=== PATIENT | female | born 1980 | race Caucasian/White ===

== ENCOUNTER 2019-11-05 02:14 | Emergency (ER) | payer BC ==
[2019-11-05] MEDS ORDERED: ONDANSETRON 4 MG/2 ML VIAL ONE (03:10)
[2019-11-05] MEDS ORDERED: NA CHLORIDE 0.9% 1,000 ML ONE (03:10)
[2019-11-05 03:45] LABS: Absolute Lymphocytes (CBC) 2.7 K/uL (0.7-4.9); Basophils % 0.4 % (0-1.3); Hematocrit 40.1 % (36.0-45.0); Lymphocytes % 35.9 % (15.3-44.8); MPV 9.5 fL (7.6-11.3); RBC Red Blood Cell Count 4.56 M/uL (3.86-4.86)
[2019-11-05 03:50] LABS: Protime INR 0.99
[2019-11-05 03:55] LABS: Barbiturates NEGATIVE (NEGATIVE); Benzodiazepines NEGATIVE (NEGATIVE); Cocaine NEGATIVE (NEGATIVE); METHAMPHETAM NEGATIVE (NEGATIVE); Methadone NEGATIVE (NEGATIVE); Opiates NEGATIVE (NEGATIVE); Phencyclidine NEGATIVE (NEGATIVE); THC Cannibis NEGATIVE (NEGATIVE)
[2019-11-05 04:03] LABS: ALT/SGPT 46 U/L (12-78); AST/SGOT 27 U/L (15-37); Albumin 3.7 g/dL (3.4-5.0); Alkaline Phosphatase 70 U/L (45-117); BUN Blood Urea Nitrogen 10 mg/dL (7-18); Bicarbonate 25 mmol/L (21-32); Bilirubin Direct 0.1 mg/dL (0-0.2); Bilirubin Total 0.5 mg/dL (0.2-1.0); Glucose Level 89 mg/dL (74-106); Magnesium 2.2 mg/dL (1.8-2.4); NT PRO-BNP 21 pg/mL (<125); Potassium 3.7 mmol/L (3.5-5.1); Sodium Level 140 mmol/L (136-145); Troponin (Emerg Dept Use Only) < 0.02 ng/mL (0.0-0.045)
--- NOTE | 2019-11-05 04:15 | EDPHYS ---
Physician Documentation [facility] Name: Dior Avila Age: 39 yrs Sex: Female : 1980 Arrival Date: 11/05/2019 Time: 02:18 Bed 15 Private MD: ALEXANDRE Physician Gregorio Galeana HPI: 11/05 03:04 This 39 yrs old Female presents to ER via Ambulatory with complaints of tolu Dizziness, Doesn't Feel Right. 03:04 The patient presents with dizziness, feeling faint, generalized weakness. Onset: The tolu symptoms/episode began/occurred just prior to arrival. Context: occurred at home, occurred while the patient was. Modifying factors: The symptoms are alleviated by nothing, the symptoms are aggravated by nothing. Associated signs and symptoms: The patient has no apparent associated signs or symptoms. Severity of symptoms: At their worst the symptoms were mild in the emergency department the symptoms are unchanged. Patient's baseline: Neuro:. The patient has not experienced similar symptoms in the past. 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 [Active]; bb - PMHx: 02:46 None; bb - PSHx: 02:46 Tubal ligation; bilateral heel spurs; bb - Immunization history:: Adult Immunizations up to date. - Coronavirus screen:: The patient has NOT traveled to [place], [place], or [place] in the past 14 days. Proceed with normal triage process as indicated. - Social history:: Smoking status: Patient denies any tobacco usage or history of. - Family history:: not pertinent. - Ebola Screening: : No symptoms or risks identified at this time. ROS: 03:04 Constitutional: Negative for fever, chills, and weight loss, Eyes: Negative for injury, tolu pain, redness, and discharge, ENT: Negative for injury, pain, and discharge, Neck: Negative for injury, pain, and swelling, Cardiovascular: Negative for chest pain, palpitations, and edema, Respiratory: Negative for shortness of breath, cough, wheezing, and pleuritic chest pain, Abdomen/GI: Negative for abdominal pain, nausea, vomiting, diarrhea, and constipation, Back: Negative for injury and pain, : Negative for injury, bleeding, discharge, and swelling, MS/Extremity: Negative for injury and deformity, Skin: Negative for injury, rash, and discoloration, Psych: Negative for depression, anxiety, suicide ideation, homicidal ideation, and hallucinations, Allergy/Immunology: Negative for hives, rash, and allergies, Endocrine: Negative for neck swelling, polydipsia, polyuria, polyphagia, and marked weight changes, Hematologic/Lymphatic: Negative for swollen nodes, abnormal bleeding, and unusual bruising. 03:04 Neuro: Positive for altered mental status, weakness. Exam: 03:04 Constitutional: This is a well developed, well nourished patient who is awake, alert, tolu and in no acute distress. Head/Face: Normocephalic, atraumatic. Eyes: Pupils equal round and reactive to light, extra-ocular motions intact. Lids and lashes normal. Conjunctiva and sclera are non-icteric and not injected. Cornea within normal limits. Periorbital areas with no swelling, redness, or edema. ENT: Nares patent. No nasal discharge, no septal abnormalities noted. Tympanic membranes are normal and external auditory canals are clear. Oropharynx with no redness, swelling, or masses, exudates, or evidence of obstruction, uvula midline. Mucous membranes moist. Neck: Trachea midline, no thyromegaly or masses palpated, and no cervical lymphadenopathy. Supple, full range of motion without nuchal rigidity, or vertebral point tenderness. No Meningismus. Chest/axilla: Normal chest wall appearance and motion. Nontender with no deformity. No lesions are appreciated. Cardiovascular: Regular rate and rhythm with a normal S1 and S2. No gallops, murmurs, or rubs. Normal PMI, no JVD. No pulse deficits. Respiratory: Lungs have equal breath sounds bilaterally, clear to auscultation and percussion. No rales, rhonchi or wheezes noted. No increased work of breathing, no retractions or nasal flaring. Abdomen/GI: Soft, non-tender, with normal bowel sounds. No distension or tympany. No guarding or rebound. No evidence of tenderness throughout. Back: No spinal tenderness. No costovertebral tenderness. Full range of motion. Female : Normal external genitalia. Skin: Warm, dry with normal turgor. Normal color with no rashes, no lesions, and no evidence of cellulitis. MS/ Extremity: Pulses equal, no cyanosis. Neurovascular intact. Full, normal range of motion. Neuro: Awake and alert, GCS 15, oriented to person, place, time, and situation. Cranial nerves II-XII grossly intact. Motor strength 5/5 in all extremities. Sensory grossly intact. Cerebellar exam normal. Normal gait. Psych: Awake, alert, with orientation to person, place and time. Behavior, mood, and affect are within normal limits. 03:04 Musculoskeletal/extremity: DVT Exam: No signs of deep vein thrombosis. no pain, no swelling, no tenderness, negative Homans' sign noted on exam, no appreciated bluish discoloration, no erythema, no increased warmth. Vital Signs: 02:46 BP 117 / 68; Pulse 99; Resp 16 S; Temp 98.1(O); Pulse Ox 100% on R/A; Weight 78.02 kg bb (R); Height 5 ft. 4 in. (162.56 cm) (R); Pain 0/10; 03:30 BP 121 / 66; Pulse 97; Resp 16; Pulse Ox 98% ; rv 04:30 BP 118 / 66; Pulse 97; Resp 15; Pulse Ox 100% on R/A; rv 02:46 Body Mass Index 29.52 (78.02 kg, 162.56 cm) bb MDM: 02:48 Patient medically screened. [facility] 03:06 Data reviewed: vital signs, nurses notes, lab test result(s), CBC, drug level(s), tolu electrolytes, Flu: hepatic panel, urinalysis, urine drug screen, EKG, radiologic studies. 11/05 03:03 Order name: Basic Metabolic Panel [facility] 11/05 03:03 Order name: CBC with Diff tolu 11/05 03:03 Order name: LFT's 11/05 03:03 Order name: Magnesium 11/05 03:03 Order name: NT PRO-BNP 11/05 03:03 Order name: PT-INR [facility] 11/05 03:03 Order name: Troponin (emerg Dept Use Only) [facility] 11/05 03:03 Order name: Lipase [facility] 11/05 03:03 Order name: UDS [facility] 11/05 03:08 Order name: Basic Metabolic Panel; Complete Time: 04:14 EDMS 02/08 03:08 Order name: CBC with Automated Diff; Complete Time: 04:14 EDMS 11/05 03:08 Order name: Liver (Hepatic) Function; Complete Time: 04:14 EDMS 08 03:08 Order name: Magnesium; Complete Time: 04:14 EDMS 0208 03:08 Order name: NT PRO-BNP; Complete Time: 04:14 EDMS 0208 03:03 Order name: XRAY Chest (1 view) [facility] 11/05 03:03 Order name: EKG; Complete Time: 03:09 [facility] 11/05 03:03 Order name: Cardiac monitoring; Complete Time: 06:21 [facility] 11/05 03:03 Order name: EKG - Nurse/Tech; Complete Time: 06:21 [facility] 11/05 03:03 Order name: IV Saline Lock; Complete Time: 06:22 [facility] 11/05 03:03 Order name: Labs collected and sent; Complete Time: 06:22 [facility] 11/05 03:03 Order name: O2 Per Protocol; Complete Time: 06:22 [facility] 11/05 03:03 Order name: O2 Sat Monitoring; Complete Time: 06:22 [facility] 11/05 03:03 Order name: CT Head Brain wo Cont [facility] 11/05 03:03 Order name: Urine Dipstick-Ancillary (obtain specimen) [facility] 11/05 03:08 Order name: Protime (+INR); Complete Time: 04:14 EDMS 08 03:51 Order name: Lipase; Complete Time: 04:14 EDMS 08 03:55 Order name: Urine Drug Screen; Complete Time: 04:14 EDMS 11/05 04:03 Order name: Troponin (Emerg Dept Use Only); Complete Time: 04:14 EDMS Administered Medications: 03:30 Drug: NS 0.9% 1000 ml Route: IV; Rate: 1 bolus; Site: left antecubital; rv 04:30 Follow up: IV Status: Completed infusion; IV Intake: 1000ml rv 03:30 Drug: Zofran 4 mg Route: IVP; Site: left antecubital; rv 04:30 Follow up: Response: No adverse reaction rv Disposition: 11/05/19 04:14 Discharged to Home. Impression: Dizziness and giddiness, Weakness. - Condition is Stable. - Discharge Instructions: Dizziness, Near-Syncope, Weakness, Fatigue, Near-Syncope, [id number]-yd-Imro, Dizziness, [id number]. - Prescriptions for Meclizine 25 mg Oral Tablet - take 1 tablet by ORAL route every 8 hours As needed; 30 tablet. Zofran 4 mg Oral Tablet - take 1 tablet by ORAL route every 12 hours As needed; 14 tablet. - Medication Reconciliation Form, Thank You Letter, Antibiotic Education, Prescription Opioid Use, Work release form form. - Follow up: Private Physician; When: 2 - 3 days; Reason: Recheck today's complaints, Continuance of care, Re-evaluation by your physician. - Problem is new. - Symptoms have improved. Signatures: Dispatcher [employer] EDMS Gregorio Galeana MD MD cha Ballard, Brenda, RN RN bb Andreas Xie RN RN rv Corrections: (The following items were deleted from the chart) 05:23 04:14 11/05/2019 04:14 Discharged to Home. Impression: Dizziness and giddiness; bb Weakness. Condition is Stable. Discharge Instructions: Dizziness, Near-Syncope, Weakness, Fatigue, Near-Syncope, Winp-sy-Xrap, Dizziness, [id number]. Prescriptions for Meclizine 25 mg Oral Tablet - take 1 tablet by ORAL route every 8 hours As needed; 30 tablet, Zofran 4 mg Oral Tablet - take 1 tablet by ORAL route every 12 hours As needed; 14 tablet. and Forms are Medication Reconciliation Form, Thank You Letter, Antibiotic Education, Prescription Opioid Use. Follow up: Private Physician; When: 2 - 3 days; Reason: Recheck today's complaints, Continuance of care, Re-evaluation by your physician. Problem is new. Symptoms have improved. tolu
--- NOTE | 2019-11-05 04:15 | ER ---
Nurse's Notes [facility] Name: Dior Avila Age: 39 yrs Sex: Female : 1980 Arrival Date: 11/05/2019 Time: 02:18 Bed 15 Private MD: Diagnosis: Dizziness and giddiness;Weakness Presentation: 11/05 02:43 Presenting complaint: Patient states: yesterday afternoon at work she started not bb feeling right with dizziness, a cold sensation she went home and tried to sleep but woke up at 0100 feeling this "cold sensation, floaty feeling" and it scared her. Transition of care: patient was not received from another setting of care. Onset of symptoms was November 04, 2019. Risk Assessment: Do you want to hurt yourself or someone else? Patient reports no desire to harm self or others. Initial Sepsis Screen: Does the patient meet any 2 criteria? No. Patient's initial sepsis screen is negative. Does the patient have a suspected source of infection? No. Patient's initial sepsis screen is negative. Care prior to arrival: None. 02:43 Method Of Arrival: Ambulatory bb 02:43 Acuity: JOSE 3 bb Triage Assessment: 03:30 General: Appears in no apparent distress. Behavior is calm, cooperative. 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 [Active]; bb - PMHx: 02:46 None; bb - PSHx: 02:46 Tubal ligation; bilateral heel spurs; bb - Immunization history:: Adult Immunizations up to date. - Coronavirus screen:: The patient has NOT traveled to [place], [place], or [place] in the past 14 days. Proceed with normal triage process as indicated. - Social history:: Smoking status: Patient denies any tobacco usage or history of. - Family history:: not pertinent. - Ebola Screening: : No symptoms or risks identified at this time. Screenin:30 Abuse screen: Denies threats or abuse. Denies injuries from another. Nutritional rv screening: No deficits noted. Tuberculosis screening: No symptoms or risk factors identified. Fall Risk None identified. Assessment: 03:30 General: Appears in no apparent distress. Behavior is calm, cooperative. rv 03:30 Pain: Denies pain. Neuro: Level of Consciousness is awake, alert, obeys commands, rv Oriented to person, place, time, situation. Cardiovascular: Patient's skin is warm and dry. Respiratory: Airway is patent. Vital Signs: 02:46 BP 117 / 68; Pulse 99; Resp 16 S; Temp 98.1(O); Pulse Ox 100% on R/A; Weight 78.02 kg bb (R); Height 5 ft. 4 in. (162.56 cm) (R); Pain 0/10; 03:30 BP 121 / 66; Pulse 97; Resp 16; Pulse Ox 98% ; rv 04:30 BP 118 / 66; Pulse 97; Resp 15; Pulse Ox 100% on R/A; rv 02:46 Body Mass Index 29.52 (78.02 kg, 162.56 cm) bb ED Course: 02:18 Patient arrived in ED. [id number] 02:44 Triage completed. bb 02:46 Arm band placed on Patient placed in an exam room, on a stretcher, on pulse oximetry. bb Family accompanied patient. 02:48 Gregorio Galeana MD is Attending Physician. tolu 02:55 Andreas Xie RN is Primary Nurse. rv 03:30 Patient has correct armband on for positive identification. Pulse ox on. NIBP on. rv 03:30 No provider procedures requiring assistance completed. Inserted saline lock: 18 gauge rv in left antecubital area, using aseptic technique. 04:30 IV discontinued, intact, bleeding controlled, No redness/swelling at site. Pressure rv dressing applied. 05:12 XRAY Chest (1 view) In Process Unspecified. EDMS 05:12 CT Head Brain wo Cont In Process Unspecified. EDMS Administered Medications: 03:30 Drug: NS 0.9% 1000 ml Route: IV; Rate: 1 bolus; Site: left antecubital; rv 04:30 Follow up: IV Status: Completed infusion; IV Intake: 1000ml rv 03:30 Drug: Zofran 4 mg Route: IVP; Site: left antecubital; rv 04:30 Follow up: Response: No adverse reaction rv Intake: 04:30 IV: 1000ml; Total: 1000ml. rv Outcome: 04:14 Discharge ordered by . tolu 05:00 Discharged to home ambulatory, with family. rv 05:00 Condition: good 05:00 Discharge instructions given to patient, Instructed on discharge instructions, follow rv up and referral plans. medication usage, Demonstrated understanding of instructions, follow-up care, medications, Prescriptions given X 2. 05:23 Patient left the ED. bb Signatures: Dispatcher [employer] EDGregorio Maldonado MD MD cha Ballard, Brenda RN RN Andreas Dale RN RN Glenis [id number] Corrections: (The following items were deleted from the chart) 02:50 02:46 BP 117 / 68; Pulse 99bpm; Resp 16bpm; Spontaneous; Pulse Ox 100% RA; 78.02 kg bb Reported; Height 5 ft. 4 in. Reported; BMI: 29.5; Pain 0/10; bb
[2019-11-05 05:30] VITALS: BP 117/68; TEMP 98.1; O2SAT 100
--- NOTE | 2019-11-05 09:09 | RAD REPORT ---
EXAM DESCRIPTION: Justine Single View11/05/2019 3:40 am CLINICAL HISTORY: cough COMPARISON: 2007 FINDINGS: The lungs appear clear of acute infiltrate. The heart is normal size IMPRESSION: No acute abnormalities displayed
--- NOTE | 2019-11-05 11:29 | RAD REPORT ---
EXAM DESCRIPTION: CT - Head Brain Wo Cont - 11/05/2019 6:14 am CLINICAL HISTORY: DIZZINESS COMPARISON: None available TECHNIQUE: Axial CT of the head obtained from the skull apex to the skull base without contrast. FINDINGS: No acute intracranial hemorrhage identified. No mass, mass effect, shift of the midline, a bnormal extra-axial fluid collection or CT evidence of acute ischemic change identified. The ventricu lar system is unremarkable. No acute abnormalities of the supratentorial white matter, basal gangli a, cerebellum, or brainstem. The visualized paranasal sinuses and the mastoids are clear. Possible sebaceous cyst in the right sca lp subcutaneous soft tissues. No skull fracture identified. Visualized orbits and globes are unre markable. IMPRESSION: 1. No acute intracranial abnormality identified. This exam was performed according to our departmental dose-optimization program, which includes autom ated exposure control, adjustment of the mA and/or kV according to patient size and/or use of iterati ve reconstruction technique. Electronically signed by: Kemal Brunson 11/05/2019 5:29 AM TELEPHONE LINES REPAIRER Due to temporary technical issues with the PACS/Fluency reporting system, reports are being signed by the in house radiologist as a courtesy to ensure prompt reporting. The interpreting radiologist is f ully responsible for the content of the report.
== END 2019-11-05 05:23 | disposition home or self-care (01) ==
LOC: ER 02:14
DX: R53.1 Weakness (principal)
CPT/HCPCS: 96361; 85025; 80048; 36415; 83735; 85610; 80076; 80307 ×8; 84484; 83690; 83880; 70450; 71045; 96374; 99284; J7030; J2405

== ENCOUNTER 2021-05-15 16:34 | Emergency (ER) | payer BC ==
[2021-05-15] MEDS ORDERED: ACETAMINOPHEN 500 MG TAB ONE (17:24)
--- NOTE | 2021-05-15 18:08 | RAD REPORT ---
EXAM DESCRIPTION: RAD - Chest Single View - 05/15/2021 5:56 pm CLINICAL HISTORY: COUGH COMPARISON: Portable October 2019 TECHNIQUE: AP portable chest image was obtained 05/15/2021 5:56 pm . FINDINGS: Lung volumes are low. No dense mass or consolidations seen. Slight increase in lung markin gs noted superior right perihilar region. No other focal lung parenchymal process confirmed. Trachea is midline. Heart and vasculature are normal. No measurable pleural effusion and no pneumotho rax. No acute bony abnormality seen. No acute aortic findings suspected. IMPRESSION: Limited low lung volume exam showing right upper perihilar opacification suspicious for a mild or early pneumonia.
--- NOTE | 2021-05-15 19:54 | EDPHYS ---
Physician Documentation [facility] Name: Dior Avila Age: 40 yrs Sex: Female : 1980 Arrival Date: 05/15/2021 Time: 16:34 Bed 23 Private MD: ED Physician Maxi Florentino HPI: 05/16 00:45 This 40 yrs old Female presents to ER via Ambulatory with complaints of Covid kb + Fatigue. 00:45 The patient or guardian reports cough, flu symptoms, myalgias. Onset: The kb symptoms/episode began/occurred 3 day(s) ago. Severity of symptoms: At their worst the symptoms were moderate, in the emergency department the symptoms are unchanged. Modifying factors: The symptoms are alleviated by nothing, the symptoms are aggravated by nothing. Associated signs and symptoms: The patient has no apparent associated signs or symptoms. The patient has not experienced similar symptoms in the past. The patient has been recently seen by a physician:. Patient reports she was tested tested positive for Covid 3 days ago. Came in today for severe body aches and fatigue. States all she has been wanting to do is sleep.. Historical: - Allergies: 05/15 16:58 No Known Allergies; ss - Home Meds: 16:58 None [Active]; ss - PMHx: 16:58 None; ss - PSHx: 16:58 Tubal ligation; ss - Immunization history:: Client reports having NOT received the Covid vaccine. - Social history:: Smoking status: Patient denies any tobacco usage or history of. ROS: 05/16 00:45 ENT: Negative for injury, pain, and discharge. kb Constitutional: Positive for body aches, fatigue, malaise. Respiratory: Positive for cough, Negative for dyspnea on exertion, hemoptysis, orthopnea, pleurisy, shortness of breath, sputum production, wheezing. All other systems are negative. Exam: 00:45 Constitutional: This is a well developed, well nourished patient who is awake, alert, kb and in no acute distress. Head/Face: Normocephalic, atraumatic. ENT: Moist Mucous membranes Cardiovascular: Regular rate and rhythm with a normal S1 and S2. No gallops, murmurs, or rubs. No pulse deficits. Respiratory: Respirations even and unlabored. No increased work of breathing, no retractions or nasal flaring. Abdomen/GI: Soft, non-tender. No distention Skin: Warm, dry with normal turgor. Normal color. MS/ Extremity: Pulses equal, no cyanosis. Neurovascular intact. Full, normal range of motion. Neuro: Awake and alert, GCS 15, oriented to person, place, time, and situation. Moves all extremities. Normal gait. Psych: Awake, alert, with orientation to person, place and time. Behavior, mood, and affect are within normal limits. Vital Signs: 05/15 16:58 BP 114 / 57; Pulse 104; Resp 17; Temp 100.7(O); Pulse Ox 98% on R/A; Weight 72.57 kg; ss Height 5 ft. 4 in. (162.56 cm); Pain 6/10; 19:43 BP 100 / 63; Pulse 78; Resp 20; Temp 98.8; Pulse Ox 100% on R/A; lh3 16:58 Body Mass Index 27.46 (72.57 kg, 162.56 cm) ss MDM: 19:30 Patient medically screened. kb 05/16 00:47 Data reviewed: vital signs, nurses notes. Data interpreted: Pulse oximetry: on room air kb is 100 %. Interpretation: normal. Counseling: I had a detailed discussion with the patient and/or guardian regarding: the historical points, exam findings, and any diagnostic results supporting the discharge/admit diagnosis, the need for outpatient follow up, a family practitioner, to return to the emergency department if symptoms worsen or persist or if there are any questions or concerns that arise at home. 05/15 17:00 Order name: XRAY Chest (1 view); Complete Time: 18:37 ss Administered Medications: 05/15 17:02 Drug: Tylenol 1000 mg Route: PO; ss 19:44 Follow up: Response: No adverse reaction lh3 20:21 Drug: Zithromax (azithromycin) 500 mg Route: PO; lh3 20:21 Follow up: Response: No adverse reaction lh3 Disposition: 05/16 13:25 Co-signature as Attending Physician, Maxi Florentino MD I agree with the assessment and rn plan of care. Attestation: The patient's history, exam findings, diagnostics, and a summary of any interventions or procedures was reviewed in detail with Val OH. Disposition Summary: 05/15/21 19:54 Discharge Ordered Location: Home kb Condition: Stable kb Diagnosis - Coronavirus infection, unspecified kb - Pneumonia, unspecified organism kb Followup: kb - With: Private Physician - When: 2 - 3 days - Reason: Recheck today's complaints, Continuance of care, Re-evaluation by your physician Followup: kb - With: Emergency Department - When: As needed - Reason: Worsening of condition Discharge Instructions: - Discharge Summary Sheet kb - Viral Respiratory Infection, Tymy-En-Vruz kb - COVID-19 kb Forms: - Medication Reconciliation Form kb - Thank You Letter kb - Antibiotic Education kb - Prescription Opioid Use kb Prescriptions: - Zithromax 500 mg Oral Tablet - take 1 tablet by ORAL route once daily for 5 days; 5 tablet; Refills: 0, kb Product Selection Permitted Signatures: Dispatcher [employer] EDMI Val Alanis FNP-C FNPMaxi Pacheco MD MD rn Smirch, Shelby, RN RN ss Hardee, Latisha, RN RN 3 Corrections: (The following items were deleted from the chart) 05/15 16:59 16:58 PSHx: None; ss ss
--- NOTE | 2021-05-15 19:54 | ER ---
Nurse's Notes [facility] Name: Dior Avila Age: 40 yrs Sex: Female : 1980 Arrival Date: 05/15/2021 Time: 16:34 Bed 23 Private MD: Diagnosis: Coronavirus infection, unspecified;Pneumonia, unspecified organism Presentation: 05/15 16:56 Chief complaint: Patient states: COVID + on 3 days ago. Pt c/o extreme fatigue and body ss pain. Coronavirus screen: Client presents with at least one sign or symptom that may indicate coronavirus-19. Ebola Screen: Patient denies exposure to infectious person. Patient denies travel to an Ebola-affected area in the 21 days before illness onset. Initial Sepsis Screen: Does the patient meet any 2 criteria? No. Patient's initial sepsis screen is negative. Does the patient have a suspected source of infection? No. Patient's initial sepsis screen is negative. Risk Assessment: Do you want to hurt yourself or someone else? Patient reports no desire to harm self or others. Onset of symptoms was April 2021. 16:56 Method Of Arrival: Ambulatory ss 16:56 Acuity: JOSE 3 ss Triage Assessment: 19:42 General: Appears in no apparent distress. Behavior is calm, cooperative, appropriate lh3 for age. Pain: Denies pain. Respiratory: Reports shortness of breath cough that is productive, pain with cough. Historical: - Allergies: 16:58 No Known Allergies; ss - Home Meds: 16:58 None [Active]; ss - PMHx: 16:58 None; ss - PSHx: 16:58 Tubal ligation; ss - Immunization history:: Client reports having NOT received the Covid vaccine. - Social history:: Smoking status: Patient denies any tobacco usage or history of. Screenin:43 Abuse screen: Denies threats or abuse. Nutritional screening: No deficits noted. lh3 Tuberculosis screening: No symptoms or risk factors identified. Fall Risk None identified. Assessment: 19:43 Reassessment: Patient appears in no apparent distress at this time. General: Appears in lh3 no apparent distress. Behavior is calm, cooperative, appropriate for age. Vital Signs: 16:58 BP 114 / 57; Pulse 104; Resp 17; Temp 100.7(O); Pulse Ox 98% on R/A; Weight 72.57 kg; ss Height 5 ft. 4 in. (162.56 cm); Pain 6/10; 19:43 BP 100 / 63; Pulse 78; Resp 20; Temp 98.8; Pulse Ox 100% on R/A; lh3 16:58 Body Mass Index 27.46 (72.57 kg, 162.56 cm) ED Course: 16:34 Patient arrived in ED. ds1 16:58 Triage completed. ss 16:58 Arm band placed on left wrist. ss 17:56 XRAY Chest (1 view) In Process Unspecified. EDMS 18:36 Val Alanis FNP-C is PHCP. kb 18:36 Maxi Florentino MD is Attending Physician. kb 19:42 Gladys Lakhani, RN is Primary Nurse. lh3 19:43 Patient has correct armband on for positive identification. Bed in low position. Call lh3 light in reach. Side rails up X2. 19:43 No provider procedures requiring assistance completed. Patient did not have IV access lh3 during this emergency room visit. Administered Medications: 17:02 Drug: Tylenol 1000 mg Route: PO; ss 19:44 Follow up: Response: No adverse reaction lh3 20:21 Drug: Zithromax (azithromycin) 500 mg Route: PO; lh3 20:21 Follow up: Response: No adverse reaction lh3 Outcome: 19:54 Discharge ordered by MD. kb 20:21 Discharged to home ambulatory. lh3 20:21 Condition: stable 20:21 Discharge instructions given to patient, Instructed on discharge instructions, follow up and referral plans. medication usage, Demonstrated understanding of instructions, follow-up care, medications, Prescriptions given X 1. 20:22 Patient left the ED. lh3 Signatures: Dispatcher [employer] EDVT Val Alanis FNP-C FNP-Ckb [place], Demi ds1 Alexandria Kamara RN RN Gladys Lakhani, RN RN lh3 Corrections: (The following items were deleted from the chart) 16:59 16:58 PSHx: None; [facility]
[2021-05-15 20:29] VITALS: BP 100/63; TEMP 98.8; O2SAT 100
[2021-05-15] MEDS ORDERED: AZITHROMYCIN 250 MG TAB ONE (20:50)
== END 2021-05-15 20:22 | disposition home or self-care (01) ==
LOC: ER 16:34
DX: U07.1 COVID-19 (principal); J18.9 Pneumonia, unspecified organism
CPT/HCPCS: 71045; 99283

== ENCOUNTER 2022-04-21 07:53 | Day surgery (SDC) | payer BC ==
--- NOTE | 2022-04-18 15:30 | RAD REPORT ---
EXAM DESCRIPTION: RAD - Chest Pa And Lat (2 Views) - 04/18/2022 3:15 pm CLINICAL HISTORY: Pre op pending scalp mass removal Chest pain. COMPARISON: Chest Pa And Lat (2 Views) dated 09/06/2021; Chest Single View dated 05/15/2021; Chest Si ngle View dated 11/05/2019; CHEST PA AND LAT 2 VIEW dated 06/21/2008 FINDINGS: The lungs are clear. The heart is normal in size. No displaced fractures. IMPRESSION: No acute or concerning finding suspected.
[2022-04-18 15:35] LABS: Hematocrit 38.4 % (36.0-45.0); Lymphocytes % 49.4 % (15.3-44.8); MCV 86.6 fL (80-100); MPV 8.2 fL (7.6-11.3); RBC Red Blood Cell Count 4.43 M/uL (3.86-4.86)
[2022-04-18 15:49] LABS: Potassium 4.4 mmol/L (3.5-5.1)
[2022-04-21] MEDS ORDERED: CEFAZOLIN SODIUM 1 GM/VIAL ONE (08:26)
[2022-04-21] MEDS ORDERED: Ringers Lactate 1,000 ML IV ONE (08:26)
[2022-04-21] MEDS ORDERED: BUPIVACAINE 0.5% PF 10 ML VIAL ONE (08:39)
[2022-04-21] MEDS ORDERED: FENTANYL CITR 100 MCG/2 ML ONE (08:43)
[2022-04-21] MEDS ORDERED: MIDAZOLAM HCL 2 MG/2 ML INJ ONE (08:44)
[2022-04-21] MEDS ORDERED: ONDANSETRON 4 MG/2 ML VIAL ONE ×2 (08:44→12:46)
[2022-04-21] MEDS ORDERED: LIDOCAINE 2% MPF 5 ML VIAL ONE (08:44)
[2022-04-21] MEDS ORDERED: propofoL 200 MG/20 ML VIAL IV ONE (08:44)
[2022-04-21] MEDS ORDERED: CELECOXIB 100 MG CAPSULE ONE (08:57)
[2022-04-21] MEDS ORDERED: SCOPOLAMINE HYDROBROMIDE PATCH TD ONE (08:57)
[2022-04-21] MEDS ORDERED: ACETAMINOPHEN 500 MG TAB ONE (08:58)
--- NOTE | 2022-04-21 09:32 | EKG ---
Test Date: 2022-04-18 Test Time: 14:58:50 Director Of Teaching And Learning: ALONZO MEASUREMENT RESULTS: Intervals: Rate: 74 ND: 156 QRSD: 78 QT: 390 QTc: 432 [place]: P: 57 ND: 156 QRS: 51 T: 38 INTERPRETIVE STATEMENTS: Normal sinus rhythm Normal ECG No previous ECG available for comparison Electronically Signed On 04-21-22 09:25:20 CDT by Laci Whitten
--- NOTE | 2022-04-21 10:08 | P.BOP ---
Preoperative diagnosis: tender scalp mass Postoperative diagnosis: same Primary procedure: Excisional biopsy of tender scalp mass 3x3cm Assistive Technology Trainer: Leila Puga ( Issac) Estimated blood loss: <10cc Specimen: mass, Findings: mass Anesthesia: General Complications: None Transferred to: Recovery Room Condition: Good
[2022-04-21 10:10] VITALS: O2SAT 100
[2022-04-21] MEDS: HYDROMORPHONE HCL 1 MG/ML INJ ONE ×4 (10:18→10:38)
--- NOTE | 2022-04-21 10:46 | OP ---
Date of Procedure: 04/21/2022 Surgeon: Jonn Velez MD Preoperative Diagnosis: Tender scalp mass. Postoperative Diagnosis: Tender scalp mass. Procedure: Excisional biopsy of tender scalp mass, 3 x 3 cm Anesthesia: General plus local. Complications: None. Specimen: Mass. Indication: This is the case of a 41-year-old patient with a scalp mass. It looked like a 3 x 3 cm. There is an indentation in the middle, so it is hard to say if this is the mass or there were 2 mas ses fused together. Regardless of that, this have to be removed. It is already causing alopecia on the top of that skin. The benefits, alternatives, and risks of the scalp mass removal fully explaine d, which include, but not limited to infection, bleeding, damage to adjacent structures, anesthesia c omplication, recurrence of alopecia, [place] and even . She also understands this may not relieve an y symptoms. She might need more than one surgical intervention. She also has a chance of recurrence . She signed a consent. The area of concern was marked by me and the patient in the holding room. Procedure In Detail: The patient was brought to the operating room, placed in supine position. Anes thesia was done without complication. The scalp area was prepped and draped in the usual sterile fas hion. Local anesthesia was applied followed by sharp incision of the skin. We have to leave some of the skin behind, we could not remove all the skins from the area. Otherwise, we will not be able to close that even closure may be under some tension. So carefully with a sharp knife, we proceeded to carefully remove the scalp skin away from the mass itself and then from the galea underneath. The m ass is multilobulated. I still believe there is probably 1 mass with an indentation in the middle __ we have to remove the mass completely there. We then obtained hemostasis in order for us to approximate this incision after irrigation and after hemostasis. We proceeded to close this with a 2-0 nylon multiple times in a suture mattress fashion. Skin looks viable at the end of the case. Th e irrigation and hemostasis were obtained before this, also local anesthetic before this. Then after that, dressings were applied. The patient tolerated the procedure well. The patient was sent to [facility] in stable condition. RORY/MODL Voice ID: [id number] Report ID: [id number]
--- NOTE | 2022-04-21 10:46 | DS ---
Diagnosis: Scalp mass. Procedure: Excisional biopsy of scalp mass. Disposition: Home. Activity: As tolerated. No heavy lifting. Plan: Follow up in my office in 1 week. Call for appointment at [phone]. Keep area dry for 48 natalie rs, then may remove outer dressings and clean the area hopefully with gentle shampoo. We suggest als o baby shampoo. Then, reapply triple antibiotics over the suture lines and follow up in my office in 1 week. RORY/CHINA Voice ID: [id number] Report ID: [id number]
[2022-04-21] MEDS ORDERED: DIPHENHYDRAMINE 25 MG TAB/CAP ONE (12:46)
[2022-04-21] MEDS ORDERED: ONDANSETRON 4 MG/2 ML VIAL IV ONE (12:50)
[2022-04-21 14:23] VITALS: BP 105/60
[2022-04-21 14:25] VITALS: TEMP 97.4
== END 2022-04-21 13:10 | disposition home or self-care (01) ==
LOC: OR 07:53
PROVIDERS: ATTEND Surgery
PROC: 0HB0XZZ Excision of Scalp Skin, External Approach (ICD-10-PCS; principal; 2022-04-21 09:45)
DX: L72.0 Epidermal cyst (principal); Z20.822 Contact with and (suspected) exposure to COVID-19
CPT/HCPCS: 93005; 85025; 80048; 36415; 88304; 71046; 11423; J2704; J2250; J3010; J1170 ×2; J7120; J2405 ×3; J0690; 88305

== ENCOUNTER 2025-05-11 06:29 | Day surgery (SDC) | payer BC ==
[2025-05-05 14:37] LABS: Absolute Lymphocytes (CBC) 3.4 K/uL (0.7-4.9); Hematocrit 44.6 % (36.0-45.0); Hemoglobin 14.8 g/dL (12.0-15.0); MCH 29.8 pg (27.0-35.0); MCHC 33.1 g/dL (32.0-36.0); MCV 90.1 fL (80-100); MPV 10.1 fL (7.6-11.3); Nucleated RBC Absolute Count 0.0 (0-0); Nucleated Red Blood Cells % 0.1 % (0-0); RBC Red Blood Cell Count 4.95 M/uL (3.86-4.86); White Blood Count 9.90 thou/uL (4.3-10.9)
[2025-05-05 14:40] LABS: Urine Microscopic Reflex YN NO UMIC
[2025-05-11] MEDS ORDERED: ONDANSETRON 4 MG/2 ML VIAL ONE (06:39)
[2025-05-11] MEDS ORDERED: LIDOCAINE 1% MPF 5 ML VIAL ONE (06:39)
[2025-05-11] MEDS ORDERED: MIDAZOLAM HCL 2 MG/2 ML INJ ONE (06:40)
[2025-05-11] MEDS ORDERED: FENTANYL CITR 250 MCG/5 ML ONE (06:40)
[2025-05-11] MEDS ORDERED: KETAMINE HCL IN 0.9 % NACL 50 MG/5 ML SYRINGE IV ONE (06:40)
[2025-05-11] MEDS ORDERED: ROCURONIUM 50 MG/5 ML VIAL IV ONE (06:40)
[2025-05-11] MEDS ORDERED: Ringers Lactate 1,000 ML IV ONE (06:52)
[2025-05-11] MEDS: SCOPOLAMINE HYDROBROMIDE PATCH TD ONE (06:55)
[2025-05-11] MEDS: CEFAZOLIN SODIUM 2 GM/VIAL ONE (07:41)
[2025-05-11] MEDS ORDERED: Mastisol Adhesive Liq ONE (07:45)
[2025-05-11] MEDS: Ringers Lactate 1,000 ML IV ONE (08:23)
[2025-05-11] MEDS ORDERED: GLYCOPYRROLATE 0.2 MG/ML SYR ONE (08:36)
[2025-05-11] MEDS ORDERED: KETOROLAC 30 MG/ML INJ ONE (09:34)
[2025-05-11] MEDS ORDERED: TRAMADOL HCL 50 MG TAB PO PRN (10:14)
[2025-05-11] MEDS ORDERED: HOME MED 1 EA UNK (Ondansetron [Ondansetron Odt] 8 MG Tab.Rapdis) PO PRN (10:14)
[2025-05-11] MEDS ORDERED: IBUPROFEN 800 MG PO PRN (10:14)
[2025-05-11] MEDS ORDERED: ONDANSETRON 4 MG (ODT) TAB PO PRN (10:14)
[2025-05-11] MEDS ORDERED: HOME MED 1 EA UNK (Acyclovir [Acyclovir] 800 MG Tablet) PO SCH (10:15)
[2025-05-11] MEDS ORDERED: ESTRADIOL 6 MG IL SCH (10:15)
[2025-05-11] MEDS ORDERED: TESTOSTERONE 100 MG IL SCH (10:15)
[2025-05-11] MEDS ORDERED: HYDROCODONE/APAP 5/325 MG TAB PO PRN (10:16)
[2025-05-11] MEDS ORDERED: MEPERIDINE HCL 25 MG/ML SYR IM PRN (10:16)
[2025-05-11] MEDS ORDERED: IBUPROFEN 200 MG TAB PO PRN (10:16)
--- NOTE | 2025-05-11 10:22 | P.BOP ---
Preoperative diagnosis: menorrhagia, pelvic pain Postoperative diagnosis: same, endometriosis suspected, fibroids Primary procedure: TLH BSO endometriosis fulguration, vag morcellation Credit And Collections Analyst: Leila Puga Estimated blood loss: 25 Specimen: uterus tubes and ovaries Findings: Rt pararectal w/ mild endo/yelena master sinus,RLQ colonic adhesions,appy N Anesthesia: General Complications: None Fluids & blood products: 1200LR Uo 100 Transferred to: Recovery Room Condition: Good
[2025-05-11] MEDS: HYDROMORPHONE HCL 1 MG/ML INJ ONE ×2 (10:43→10:53)
[2025-05-11 11:00] VITALS: O2SAT 100
[2025-05-11] MEDS ORDERED: DIPHENHYDRAMINE 50 MG/ML VIAL IV ONE (11:57)
--- NOTE | 2025-05-11 12:20 | OP ---
Date of Procedure: 05/11/2025 Surgeon: Merlyn Parish MD Boilers Inspector: Leila Jeter. Preoperative Diagnoses: Menorrhagia and pelvic pain. Postoperative Diagnoses: Menorrhagia and pelvic pain, suspected endometriosis of the right pararecta l space and fibroids. Procedures Performed: Total laparoscopic hysterectomy with bilateral salpingo-oophorectomy, endometr iosis fulguration, and vaginal morcellation. Anesthesia: General endotracheal. Estimated Blood Loss: 25. Specimens: Uterus. Tubes and ovaries, bilateral. Findings: Right pararectal space with mild endometriosis on the peritoneum infiltrating the underlyi ng fat and Marty-Masters sinus, right lower quadrant with colonic adhesions to the anterior abdominal wall. Appendix appeared to be unremarkable. Liver and gallbladder unremarkable as well. No other upper abdominal surface endometriotic implants were noted on close examination of the entire abdomina l cavity. Anesthesia: General endotracheal. Conditions: No complications. Fluids: 1200. Urine Output: 100. Disposition: Transferred to the recovery room in stable condition. Indications: The patient is a 44-year-old 6, para 3-0-3-3, 3 vaginal deliveries, past histor y of laparoscopy in 1999, tubal ligation in 2010, and hysteroscopy in 2020 with D and C. She has bir th control in the form of tubal ligation. The patient has significant recurrent pelvic pain. Period s are heavy and irregular and are bothersome with chronic pelvic pain that has definitely affected he r bowel function. Chronic constipation has been long-term managed by [facility], but most recently her GI physician had only refilled her prescription with 145 urinary frequency and urgency wer e present, but these resolved after antibiotics for treatment of cystitis. She has history of uterin e fibroids we discovered in the ER on a scan, the largest of which is 4.5 cm. Patient was significan tly anxious patient. After reviewing the transvaginal ultrasound, hysteroscopy and D and C were perf ormed to rule out atypia or malignancy or endometrial polyps. Once this was done, we discussed about the different options including medical and surgical treatment, including an ablation with laparosco py or hysterectomy with laparoscopic removal of endometriosis, bilateral salpingectomy, and with bila teral oophorectomy. Due to her chronic pelvic pain which has been getting much worse over time, left lower quadrant pain being most significant, we discussed that probably a bilateral salpingo-oophorec myla would be the best understanding that there will be need for hormonal therapy for supplementation and the patient was agreeable, understanding all this, and consented for the procedure. Description Of Procedure: She was then brought to the hospital after preoperative consent was done. She was then taken back to the OR, placed in a supine fashion on the operating table. General anest hesia was given. She was placed in a dorsal lithotomy position using Marty stirrups. Abdomen preppe d with ChloraPrep; vulva, vagina, and perineum with Betadine and draped in a sterile fashion. After SCDs were started, time-out was done and positioning was checked. Antibiotics were given. She was t hen approached vaginally to place the uterine manipulator. Speculum was placed to expose the cervix. Anterior lip grasped with a single-tooth tenaculum. Cervi x dilated to 16-[place] and a large cup uterine manipulator was introduced and fixed in place. Alexandre was placed to drain the bladder to gravity drainage and this area was draped. The infraumbilical incision after injecting with 0.25% Marcaine on the skin was made with an 11 blade . Fascia was incised, tagged with 0 Vicryl sutures. Peritoneum entered sharply. Everett was introdu mookie. After adequate insufflation, upper abdominal surfaces, liver, gallbladder unremarkable. No abd ominal peritoneal implants. Right lower quadrant anterior abdominal wall adhesion of the ascending c olon was noted. Appendix appeared to be normal. The patient was placed in Trendelenburg position and a 10 port through the suprapubic area and a 5 th rough the left lower quadrant were placed under direct visualization after injecting the fascia and t he skin with 0.25% Marcaine. Endometriosis was noted in the right pararectal space just to the junction of the cul-de-sac with the posterior vaginal wall. Then there was Marty-Masters sinus immediately lateral to it going towards the pelvic floor. So these both areas were picked up and cauterized with bipolar fulguration. There were no other implants that were clear that needed excision. All peritoneal surfaces in the pelvic cavity were surveyed and negative. The round ligament pedicle on the left side was isolated by opening the peritoneum on both sides. Th e peritoneal dissection laterally taken down parallel to the IP towards in cephalad direction and the n medially, the medial leaf of the broad ligament was incised sharply between the ureter and the IP l igament. The pedicle was isolated, cauterized and cut with the LigaSure. Then, the round ligament w as taken down in a similar fashion as well. Anterior and posterior broad ligaments were opened up, a nd taken down with the LigaSure, anterior peritoneum completely incised to raise the bladder flap. B ladder was dissected inferiorly to expose the anterior vaginal wall to the level of the cup and at le ast down to 2 cm below, and vessels were exposed on both sides. Posterior peritoneum was incised fro m [id number] with the LigaSure and then the left uterine pedicle was isolated, cauterized, and cut. Then, cardinal ligaments were cauterized and cut with the same. I then went over to the opposite s tanya. Round ligament, IP ligament, broad ligament were all taken down in the same fashion. The bladd er flap was connected. Bladder was dissected inferiorly. Posterior peritoneum also connected on the incision towards the incision at the level of the cup. The right uterine pedicle was isolated, cauterized, and cut with the LigaSure. Then, cardinal ligame nts were taken down with the help of the curved tip bipolar. Monopolar hook was used to incise the v aginal cuff and to incise the anterior vaginal wall. Circumferential colpotomy was performed to deta ch the entire specimen. Vaginal morcellation: The specimen was held with an Allis clamp vaginally. Then 2 [place] cla mps were placed on the anterior and posterior lip of the uterus off the cervix. Then, the uterus was vaginally morcellated with a 10 blade. The specimen was retrieved. This was handed out to [facility]. All the pedicles had excellent hemostasis. Cuff was closed with 2 simple angle sutures on each side and 3 [id number] in the middle closing full-thickness and creating a good lift and hooking it b ack to the uterosacrals. Thorough irrigation suction was performed with excellent hemostasis. Both ureters had no evidence of electrical, mechanical, or thermal injury to them. After irrigation was completed, the trocars were removed under direct vision. Fascia at the umbilicus was closed with the tag 0 Vicryl sutures tied to each other and fascia at the suprapubic site with the simple 0 Vicryl stitch, interrupted 4-0 Hardy cryl sutures at all skin incisions. Vaginal occluder and the Alexandre were removed. Instrument, needle , and sponge counts were correct at the end of the case. The patient tolerated procedure the well. She was recovered from anesthesia and taken to PACU in stable condition. She had a bowel prep preope ratively and therefore there was some stool leakage at the bottom when I was morcellating her and thi s was carefully kept isolated without contaminating the vagina. She will follow up in 1 week and 4 weeks postop. I anticipate that the pain should also improve as t here may be adenomyosis and fibroids in the uterus. Since both tubes and ovaries were removed, I pre ferred to continue hormone therapy on her for at least 5-10 years. GERONIMO/CHINA Voice ID: [id number] Report ID: [id number]
[2025-05-11] MEDS: ONDANSETRON 4 MG/2 ML VIAL ONE (12:26)
[2025-05-11] MEDS ORDERED: PROMETHAZINE INJ 25 MG/ML AMP ONE (13:48)
[2025-05-11] MEDS: PROMETHAZINE INJ 25 MG/ML AMP IV PRN (13:55)
[2025-05-11 14:55] VITALS: BP 106/62; TEMP 98.2
[2025-05-11] MEDS ORDERED: HOME MED 1 EA UNK (Celecoxib [Celecoxib] 200 MG Capsule) PO SCH (21:00)
[2025-05-11] MEDS ORDERED: TRIAMCINOLONE 0.1% CREAM 15GM TOP SCH (21:00)
[2025-05-12] MEDS ORDERED: PROGESTERONE MICRONIZED 200 MG PO SCH (09:00)
[2025-05-12] MEDS ORDERED: HOME MED 1 EA UNK (Magnesium [Magnesium Gluconate] 200 MG Tablet) PO SCH (09:00)
[2025-05-12] MEDS ORDERED: PRASTERONE 25 MG PO SCH (09:00)
[2025-05-12] MEDS ORDERED: HOME MED 1 EA UNK (Phentermine Hcl [Phentermine Hcl] 37.5 MG Tablet) PO SCH (09:00)
[2025-05-12] MEDS ORDERED: BUPROPION HCL XL 150 MG TAB PO SCH (09:00)
[2025-05-12] MEDS ORDERED: HOME MED 1 EA UNK (Linaclotide [Linzess] 145 MCG Capsule) PO SCH (09:00)
[2025-05-12] MEDS ORDERED: B12 PO SCH (09:00)
[2025-05-12] MEDS ORDERED: MINERAL PO SCH (09:00)
[2025-05-12] MEDS ORDERED: HOME MED 1 EA UNK (Vitamin D3/Vitamin K2 (Mk4) [K2 Plus D3 Tablet] Tablet) PO SCH (09:00)
[2025-05-12] MEDS ORDERED: B6 PO SCH (09:00)
[2025-05-12] MEDS ORDERED: [UNRECOGNIZED DRUG - OTHER] PO SCH (09:00)
== END 2025-05-11 14:45 | disposition home or self-care (01) ==
LOC: OR 06:29
PROVIDERS: ATTEND Obstetrics & Gynecology
PROC: 0UT2FZZ Resection of Bilateral Ovaries, Via Natural or Artificial Opening With Percutaneous Endoscopic Assistance (ICD-10-PCS; 2025-05-11)
PROC: 0UT7FZZ Resection of Bilateral Fallopian Tubes, Via Natural or Artificial Opening With Percutaneous Endoscopic Assistance (ICD-10-PCS; 2025-05-11)
PROC: 0UBF4ZZ Excision of Cul-de-sac, Percutaneous Endoscopic Approach (ICD-10-PCS; 2025-05-11)
PROC: 0DBW4ZZ Excision of Peritoneum, Percutaneous Endoscopic Approach (ICD-10-PCS; 2025-05-11)
PROC: 0UT9FZZ Resection of Uterus, Via Natural or Artificial Opening With Percutaneous Endoscopic Assistance (ICD-10-PCS; principal; 2025-05-11 07:30)
DX: N92.1 Excessive and frequent menstruation with irregular cycle (principal); N94.6 Dysmenorrhea, unspecified; R10.2 Pelvic and perineal pain; N88.8 Other specified noninflammatory disorders of cervix uteri; D21.9 Benign neoplasm of connective and other soft tissue, unspecified; N80.03 Adenomyosis of the uterus; N80.30 Endometriosis of pelvic peritoneum, unspecified; N80.329 Endometriosis of the posterior cul-de-sac, unspecified depth
CPT/HCPCS: 85025; 36415; 86900; 86850; 81025; 86901; 88305; 81003; 58571; 58662; J3490; J2550; J2704; J2003; J2250; J3010; J1100; J1171 ×2; J2405 ×2; J7120 ×2; A4314

== ENCOUNTER 2025-05-18 22:04 | Inpatient (IN) | payer BC ==
[2025-05-18] MEDS ORDERED: KETOROLAC 30 MG/ML INJ ONE (22:53)
[2025-05-18] MEDS ORDERED: MORPHINE 2 MG/ML SYR ONE (22:53)
[2025-05-18] MEDS ORDERED: ONDANSETRON 4 MG/2 ML VIAL ONE (22:53)
[2025-05-18] MEDS ORDERED: FAMOTIDINE 20 MG/2 ML VIAL IV ONE (22:54)
[2025-05-18] MEDS ORDERED: MORPHINE 4 MG/ML SYR ONE (22:54)
[2025-05-18] MEDS ORDERED: NA CHLORIDE 0.9% 2,000 ML ONE (22:54)
[2025-05-18] MEDS ORDERED: NA CHLORIDE 0.9% 100 ML ONE (22:54)
[2025-05-18] MEDS ORDERED: PIPERACIL/TAZO 3.375 GM VIAL IV ONE (22:55)
[2025-05-18 23:24] LABS: Absolute Lymphocytes (CBC) 3.8 K/uL (0.7-4.9); Hematocrit 38.7 % (36.0-45.0); Hemoglobin 13.3 g/dL (12.0-15.0); MCH 30.0 pg (27.0-35.0); MCHC 34.5 g/dL (32.0-36.0); MCV 87.1 fL (80-100); MPV 8.7 fL (7.6-11.3); Nucleated RBC Absolute Count 0.0 (0-0); Nucleated Red Blood Cells % 0.1 % (0-0); RBC Red Blood Cell Count 4.44 M/uL (3.86-4.86); White Blood Count 13.60 thou/uL (4.3-10.9)
[2025-05-18 23:27] LABS: ALT/SGPT 28.0 U/L (13-56); AST/SGOT 16.0 U/L (15-37); Albumin 3.6 g/dL (3.4-5.0); Albumin/Globulin Ratio 0.9 (1.1-1.8); Alkaline Phosphatase 95.0 U/L (45-117); Anion Gap 9.5 mEq/L (5.0-15.0); BUN Blood Urea Nitrogen 10.0 mg/dL (7-18); Globulin 4.0 g/dL (2.3-3.5); Glucose Level 95.0 mg/dL (74-106); Lipase 50.0 U/L (13-75); Potassium 3.5 mEq/L (3.5-5.1)
[2025-05-19 02:18] LABS: Sqamous Epithelial <5 /HPF (None Seen); Urine Micro Reflex YN NO BILL MICROSCOPIC
--- NOTE | 2025-05-19 02:33 | ER ---
Nurse's Notes [facility] Name: Dior Avila Age: 44 yrs Sex: Female : 1980 Arrival Date: 05/18/2025 Time: 22:04 Bed 18 Private MD: Diagnosis: Acute pelvic pain, acute postoperative pain, free pelvic fluid Presentation: 05/18 22:19 Chief complaint: Patient states: c/o RUQ/R side rib pain starting yesterday. patient al5 states she had received a hysterectomy last , was sent home with antibiotics and pain medicine, patient has not had any relief. Coronavirus screen: At this time, the client does not indicate any symptoms associated with coronavirus-19. Ebola Screen: No symptoms or risks identified at this time. Initial Sepsis Screen: Does the patient meet any 2 criteria? No. Patient's initial sepsis screen is negative. Does the patient have a suspected source of infection? No. Patient's initial sepsis screen is negative. Risk Assessment: Do you want to hurt yourself or someone else? Patient reports no desire to harm self or others. Note had CT scan with and without contrast today. Onset of symptoms was May 17, 2025. 22:19 Method Of Arrival: Ambulatory al5 22:19 Acuity: JOSE 3 al5 Triage Assessment: 22:19 General: Appears in no apparent distress. uncomfortable, well groomed, well developed, al5 Behavior is calm, cooperative. Pain: Complains of pain in right seventh rib, right eighth rib, right ninth rib, right tenth rib and right upper quadrant Pain currently is 10 out of 10 on a pain scale. EENT: No signs and/or symptoms were reported regarding the EENT system. Neuro: Level of Consciousness is awake, alert, obeys commands, Oriented to person, place, time, situation. Cardiovascular: Capillary refill < 3 seconds Patient's skin is warm and dry. Respiratory: Airway is patent Respiratory effort is even, unlabored, Respiratory pattern is regular, symmetrical. GI: incision sites from abdominal hysterectomy clean, without redness or drainage noted. Abd is soft X 4 quads Abdomen is tender to palpation in anterior aspect of right lateral abdomen and right upper quadrant Reports upper abdominal pain. : No signs and/or symptoms were reported regarding the genitourinary system. Derm: Skin is intact, is healthy with good turgor, Skin is pink, warm \T\ dry. normal. Musculoskeletal: Circulation, motion, and sensation intact. Range of motion: intact in all extremities. 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 - Infectious Disease History:: Denies. - Social history:: Smoking status: Patient denies any tobacco usage or history of. - Family history:: not pertinent. Screenin:22 [facility] ED Fall Risk Assessment (Adult) History of falling in the last 3 months, al5 including since admission No falls in past 3 months (0 pts) Confusion or Disorientation No (0 pts) Intoxicated or Sedated No (0 pts) Impaired Gait No (0 pts) Mobility Assist Device Used No (0 pt) Altered Elimination No (0 pt) Score/Fall Risk Level 0 - 2 = Low Risk Oriented to surroundings, Maintained a safe environment, Hourly rounding (assess needs \T\ fall precautionary measures) done. Abuse screen: Denies threats or abuse. Denies injuries from another. Nutritional screening: No deficits noted. Tuberculosis screening: No symptoms or risk factors identified. Assessment: :22 Reassessment: see triage assessment. al5 23:37 General: Appears uncomfortable, Behavior is cooperative. Pain: Complains of pain in tb4 right upper quadrant Pain does not radiate. Pain currently is 2 out of 10 on a pain scale. Quality of pain is described as sharp, Pain began gradually, Is continuous. Neuro: Level of Consciousness is awake, alert, obeys commands, Oriented to person, place, time, situation, Banquet Coordinator are equal bilaterally Moves all extremities. Full function Gait is steady, Speech is normal, Facial symmetry appears normal. Respiratory: Airway is patent Respiratory effort is even, unlabored, Respiratory pattern is regular, symmetrical. GI: Abdomen is round Bowel sounds present X 4 quads. Abd is soft Abdomen is tender to palpation in right upper quadrant. : No signs and/or symptoms were reported regarding the genitourinary system. EENT: No signs and/or symptoms were reported regarding the EENT system. Derm: No signs and/or symptoms reported regarding the dermatologic system. Skin is intact, is healthy with good turgor, Skin is dry, Skin is normal, Skin temperature is warm. Musculoskeletal: No signs and/or symptoms reported regarding the musculoskeletal system. Vital Signs: 22:19 BP 121 / 58; Pulse 106; Resp 18; Temp 98.4; Pulse Ox 100% on R/A; Weight 77.11 kg; al5 Height 5 ft. 4 in. ; Pain 10/; 23:04 BP 136 / 77; Pulse 105; Resp 26; Pulse Ox 100% on 2 lpm NC; Pain 10/; tb4 23:37 BP 127 / 72; Pulse 86; Resp 20; Pulse Ox 100% on R/A; Pain 2/10; tb4 05/19 00:43 BP 127 / 80; Pulse 105; Resp 20; Pulse Ox 97% on R/A; Pain 2/10; tb4 01:20 BP 111 / 75; Pulse 86; Resp 20; Pulse Ox 99% on R/A; Pain 2/10; tb4 02:10 BP 102 / 68; Pulse 75; Resp 18; Pulse Ox 100% on R/A; tb4 03:04 BP 127 / 8; Pulse 63; Resp 20; Pulse Ox 100% on R/A; Pain 2/10; tb4 05/18 22:19 Body Mass Index 29.18 (77.11 kg, 162.56 cm) al5 05/18 22:19 Pain Scale: Adult al5 23:04 Pain Scale: Adult tb4 23:37 Pain Scale: Adult tb4 05/19 00:43 Pain Scale: Adult tb4 01:20 Pain Scale: Adult tb4 03:04 Pain Scale: Adult tb4 [place] Coma Score: 20:20 Eye Response: spontaneous(4). Motor Response: obeys commands(6). Verbal Response: sp4 oriented(5). Total: 15. ED Course: 05/18 22:06 Patient arrived in ED. mr 22:09 Wang Velasquez MD is Attending Physician. sp4 22:19 Arm band placed on right wrist. Patient placed in the treatment room, in view of staff al5 members, on teletypesetter monitor, on pulse oximetry. 22:29 Triage completed. al5 22:32 Patient has correct armband on for positive identification. Placed in gown. Bed in low al5 position. Call light in reach. Side rails up X 1. Provided Education on: plan of care. 22:33 No provider procedures requiring assistance completed. al5 23:00 Initial lab(s) drawn, First set of blood cultures drawn by me, Second set of blood tb4 cultures drawn by me. Inserted saline lock: 20 gauge in left antecubital area, using aseptic technique. Blood collected. Flushed with 10 mL NS. 23:37 Client placed on continuous cardiac and pulse oximetry monitoring. NIBP monitoring tb4 applied. bus driver/monitor on. Pulse ox on. Door closed. Lights dimmed. Warm blanket given. 05/19 02:28 Jonathan Saavedra MD is Hospitalizing Provider. sp4 Administered Medications: 05/18 23:25 Drug: morphine IVP or IV 6 mg IVP once over 4 mins Route: IVP; Infused Over: 4 mins; tb4 Site: left antecubital; 05/19 00:31 Follow up: Response: No adverse reaction; Pain is decreased; RASS: Alert and Calm (0) tb4 05/18 23:25 Drug: Famotidine IVP 20 mg IVP once; dilute with 10 mL 0.9% NaCl; give over 2 minutes tb4 Route: IVP; Site: left antecubital; 05/19 00:29 Follow up: Response: No adverse reaction tb4 05/18 23:25 Drug: TORadol - Ketorolac IVP 30 mg IVP once Route: IVP; Site: left antecubital; tb4 05/19 00:31 Follow up: Response: No adverse reaction; Pain is decreased tb4 00:32 Follow up: Response: RASS: Alert and Calm (0) tb4 05/18 23:25 Drug: Ondansetron IVP 4 mg IVP once; over 2 minutes Route: IVP; Site: left antecubital; tb4 05/19 00:30 Follow up: Response: No adverse reaction tb4 05/18 23:25 Drug: NS 0.9% IV 1000 ml IV at 1 bolus Per protocol; to be given as a bolus over 60 tb4 minutes Route: IV; Rate: 1 bolus; Site: left antecubital; 05/19 00:28 Follow up: Response: No adverse reaction; IV Status: Completed infusion tb4 05/18 23:28 Drug: Droperidol IVP 2.5 mg IVP once Route: IVP; Site: left antecubital; tb4 05/19 00:29 Follow up: Response: No adverse reaction; Pain is decreased tb4 00:32 Follow up: Response: RASS: Alert and Calm (0) tb4 05/18 23:54 Drug: Piperacillin-Tazobactam IVPB 3.375 grams IVPB once over 60 mins; (mix in NS 100 tb4 mL) Route: IVPB; Infused Over: 60 mins; Site: left antecubital; 05/19 00:29 Follow up: Response: No adverse reaction; IV Status: Completed infusion tb4 00:28 Drug: NS 0.9% IV 1000 ml IV at 125 ml/hr once; to be given at 125 ml/hour Route: IV; tb4 Rate: 125 ml/hr; Site: left antecubital; 04:27 Follow up: Response: No adverse reaction; IV Status: Completed infusion tb4 Medication: 05/18 22:22 VIS not applicable for this client. al5 Outcome: 05/19 02:32 Decision to Hospitalize by Provider. sp4 04:27 Patient left the ED. tb4 Signatures: Kylah Gomez, Reg Reg mr Wang Velasquez MD MD sp4 Amelia Samaniego RN RN al5 Felicia Espinosa RN RN tb4
--- NOTE | 2025-05-19 02:33 | EDPHYS ---
Physician Documentation [facility] Name: Dior Avila Age: 44 yrs Sex: Female : 1980 Arrival Date: 05/18/2025 Time: 22:04 Bed 18 Private MD: ED Physician Wang Velasquez HPI: 05/18 22:09 This 44 yrs old Female presents to ER via Unassigned with complaints of Rib sp4 pain, Flank Pain. 22:33 - Procedure record 05/11/2025. Surgeon: Merlyn Parish MD Preoperative Diagnoses: sp4 Menorrhagia and pelvic pain. Postoperative Diagnoses: Menorrhagia and pelvic pain, suspected endometriosis of the right pararectal space and fibroids. Procedures Performed: Total laparoscopic hysterectomy with bilateral salpingo-oophorectomy, endometriosis fulguration, and vaginal morcellation. . 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 - Infectious Disease History:: Denies. - Social history:: Smoking status: Patient denies any tobacco usage or history of. - Family history:: not pertinent. ROS: 05/19 20:20 Constitutional: Negative for fever, chills, and weight loss, positive for upper sp4 abdominal pain, positive for pelvic pain. All other systems are negative, Exam: 20:20 Constitutional: This is a well developed, well nourished patient who is awake, alert, sp4 and in no acute distress. Head/Face: Normocephalic, atraumatic. Eyes: Pupils equal round and reactive to light, extra-ocular motions intact. Lids and lashes normal. Conjunctiva and sclera are not injected. Cornea within normal limits. Periorbital areas with no swelling, redness, or edema. ENT: Nares patent. No nasal discharge, no septal abnormalities noted. Tympanic membranes are normal and external auditory canals are clear. Oropharynx with no redness, swelling, or masses, exudates, or evidence of obstruction, uvula midline. Mucous membranes moist. Neck: Trachea midline, no thyromegaly or masses palpated, and no cervical lymphadenopathy. Supple, full range of motion without nuchal rigidity, or vertebral point tenderness. Chest/axilla: Normal chest wall appearance and motion. Nontender with no deformity. No lesions are appreciated. Cardiovascular: Regular rate and rhythm with a normal S1 and S2. No gallops, murmurs, or rubs. No pulse deficits. Respiratory: Lungs have equal breath sounds bilaterally, clear to auscultation and percussion. No rales, rhonchi or wheezes noted. No increased work of breathing, no retractions or nasal flaring. Abdomen/GI: Soft, with normal bowel sounds. No distension or tympany. No guarding or rebound. No evidence of tenderness throughout. Back: No spinal tenderness. No costovertebral tenderness. Skin: Warm, dry with normal turgor. Normal color with no rashes, no lesions, and no evidence of cellulitis. MS/ Extremity: Pulses equal, no cyanosis. Neurovascular intact. Full, normal range of motion. Neuro: Awake and alert, GCS 15, oriented to person, place, time, and situation. Cranial nerves II-XII grossly intact. Motor strength 5/5 in all extremities. Sensory grossly intact. Psych: Awake, alert, with orientation to person, place and time. Behavior, mood, and affect are within normal limits Vital Signs: 05/18 22:19 BP 121 / 58; Pulse 106; Resp 18; Temp 98.4; Pulse Ox 100% on R/A; Weight 77.11 kg; al5 Height 5 ft. 4 in. ; Pain 10/10; 23:04 BP 136 / 77; Pulse 105; Resp 26; Pulse Ox 100% on 2 lpm NC; Pain 10/10; tb4 23:37 BP 127 / 72; Pulse 86; Resp 20; Pulse Ox 100% on R/A; Pain 2/10; tb4 05/19 00:43 BP 127 / 80; Pulse 105; Resp 20; Pulse Ox 97% on R/A; Pain 2/10; tb4 01:20 BP 111 / 75; Pulse 86; Resp 20; Pulse Ox 99% on R/A; Pain 2/10; tb4 02:10 BP 102 / 68; Pulse 75; Resp 18; Pulse Ox 100% on R/A; tb4 03:04 BP 127 / 8; Pulse 63; Resp 20; Pulse Ox 100% on R/A; Pain 2/10; tb4 05/18 22:19 Body Mass Index 29.18 (77.11 kg, 162.56 cm) al5 05/18 22:19 Pain Scale: Adult al5 23:04 Pain Scale: Adult tb4 23:37 Pain Scale: Adult tb4 05/19 00:43 Pain Scale: Adult tb4 01:20 Pain Scale: Adult tb4 03:04 Pain Scale: Adult tb4 [place] Coma Score: 20:20 Eye Response: spontaneous(4). Motor Response: obeys commands(6). Verbal Response: sp4 oriented(5). Total: 15. MDM: 05/18 22:31 ED course: CT today 05/18/2025 COMPARISON: 04/09/2025 FINDINGS: LOWER CHEST: No acute sp4 process identified.No significant pericardial effusion. Mild circumferential thickening of the distal esophagus which could reflect esophagitis. UPPER GI: No significant abnormality. LIVER: No significant focal abnormality. GALLBLADDER/BILE DUCTS: No biliary ductal dilatation.? PANCREAS: No mass, ductal dilation, or heather-pancreatic fluid. SPLEEN: Unremarkable. ADRENALS: No adrenal masses. KIDNEYS AND URETERS: No hydronephrosis.No suspicious renal mass.No renal calculi. ABDOMINAL AORTA AND OTHER VESSELS: Normal caliber aorta and IVC. PERITONEUM: Small volume of enhancing pelvic free fluid and stranding. LYMPH NODES: No pathologic lymphadenopathy. ABDOMINAL WALL: Unremarkable SMALL BOWEL/COLON: Wall thickening of the sigmoid colon and rectum. No free air.Eccentric wall thickening present at the terminal ileum as seen on image 66, series 3. No extraluminal contrast is seen. The terminal ileum is well opacified with enteric contrast at this level. URINARY BLADDER: Underdistended but grossly unremarkable. REPRODUCTIVE ORGANS: Uterus surgically absent. No adnexal abnormality. MUSCULOSKELETAL: No acute or suspicious osseous abnormality. ADDITIONAL FINDINGS: None. IMPRESSION: Postoperative changes from recent hysterectomy. Thickening at the sigmoid colon, rectum, and along the terminal ileum is probably reactive. No extraluminal contrast to suspect leak and no free air. Small volume of loculated pelvic free fluid is probably postoperative. No evidence of a drainable abscess. . 22:38 Medical Screening Exam initiated sp4 05/19 20:20 Differential diagnosis: pyelonephritis, UTI, diverticulitis, pancreatitis. Data sp4 reviewed: vital signs, nurses notes. Consideration of Admission/Observation Patient was admitted/placed on observation. Escalation of care including admission/observation considered. Management of patient was discussed with the following: Hospitalist: Dr. Saavedra . Branch Lead: Dr. Bolton , Dr. Fong . 05/18 22:24 Order name: CBC with Diff; Complete Time: 01:43 sp4 05/18 22:24 Order name: CMP; Complete Time: :43 sp4 05/18 22:24 Order name: Lipase; Complete Time: :43 sp4 05/18 22:26 Order name: Blood Culture Adult (2) sp4 05/18 22:38 Order name: Lactate w/ 2H reflex if indic.; Complete Time: 43 sp4 05/19 01:43 Order name: UA W/ Microscopic; Complete Time: 04:27 sp4 05/19 02:41 Order name: CBC with Automated Diff EDMS 05/19 02:41 Order name: Comprehensive Metabolic Panel EDMS 05/19 02:41 Order name: CONS Physician Consult EDFL 05/19 02:41 Order name: CONS Physician Consult EDMS 05/18 22:24 Order name: IV Saline Lock; Complete Time: 23:25 sp4 05/18 22:24 Order name: Labs collected and sent; Complete Time: 23:25 sp4 05/18 22:26 Order name: NPO; Complete Time: 23:54 sp4 Administered Medications: 05/18 23:25 Drug: morphine IVP or IV 6 mg IVP once over 4 mins Route: IVP; Infused Over: 4 mins; tb4 Site: left antecubital; 05/19 00:31 Follow up: Response: No adverse reaction; Pain is decreased; RASS: Alert and Calm (0) tb4 05/18 23:25 Drug: Famotidine IVP 20 mg IVP once; dilute with 10 mL 0.9% NaCl; give over 2 minutes tb4 Route: IVP; Site: left antecubital; 05/19 00:29 Follow up: Response: No adverse reaction tb4 05/18 23:25 Drug: TORadol - Ketorolac IVP 30 mg IVP once Route: IVP; Site: left antecubital; tb4 05/19 00:31 Follow up: Response: No adverse reaction; Pain is decreased tb4 00:32 Follow up: Response: RASS: Alert and Calm (0) tb4 05/18 23:25 Drug: Ondansetron IVP 4 mg IVP once; over 2 minutes Route: IVP; Site: left antecubital; tb4 05/19 00:30 Follow up: Response: No adverse reaction tb4 05/18 23:25 Drug: NS 0.9% IV 1000 ml IV at 1 bolus Per protocol; to be given as a bolus over 60 tb4 minutes Route: IV; Rate: 1 bolus; Site: left antecubital; 05/19 00:28 Follow up: Response: No adverse reaction; IV Status: Completed infusion tb4 05/18 23:28 Drug: Droperidol IVP 2.5 mg IVP once Route: IVP; Site: left antecubital; tb4 05/19 00:29 Follow up: Response: No adverse reaction; Pain is decreased tb4 00:32 Follow up: Response: RASS: Alert and Calm (0) tb4 05/18 23:54 Drug: Piperacillin-Tazobactam IVPB 3.375 grams IVPB once over 60 mins; (mix in NS 100 tb4 mL) Route: IVPB; Infused Over: 60 mins; Site: left antecubital; 05/19 00:29 Follow up: Response: No adverse reaction; IV Status: Completed infusion tb4 00:28 Drug: NS 0.9% IV 1000 ml IV at 125 ml/hr once; to be given at 125 ml/hour Route: IV; tb4 Rate: 125 ml/hr; Site: left antecubital; 04:27 Follow up: Response: No adverse reaction; IV Status: Completed infusion tb4 Disposition: 20:26 Chart complete. sp4 Disposition Summary: 05/19/25 02:32 Hospitalization Ordered Notes: Hospitalization Status: Inpatient Admission sp4 Provider: Jonathan Saavedra Location: Telemetry/MedSurg (observation) sp4 Condition: Fair sp4 Problem: new sp4 Symptoms: have improved sp4 Bed/Room Type: Standard sp4 Room Assignment: 424(05/19/25 02:44) rv1 Diagnosis - Acute pelvic pain, acute postoperative pain, free pelvic fluid sp4 Forms: - Medication Reconciliation Form sp4 - SBAR form sp4 - Leadership Thank You Letter sp4 Signatures: Dispatcher [employer] EDMS Belinda New rv1 Wang Velasquez MD MD sp4 Amelia Samaniego RN RN al5 Felicia Espinosa RN RN tb4 Corrections: (The following items were deleted from the chart) 05/18 22:25 22:25 CBC+H.LAB.BRZ ordered. EDMS EDMS 22: 22:25 COMPREHENSIVE METABOLIC PANEL+C.LAB.BRZ ordered. EDMS EDMS 22:25 22:25 LIPASE+C.LAB.BRZ ordered. EDMS EDMS 05/19 01:43 01:43 UA W/ Microscopic+U.LAB.BRZ ordered. EDMS EDMS 02:44 02:32 sp4 rv1
[2025-05-19] MEDS ORDERED: PIPER TAZO 3.375 GM in NA CHLORIDE 0.9% 100 ML IV SCH (02:40)
--- NOTE | 2025-05-19 02:41 | P.HP ---
Certification for Inpatient Patient admitted to: Inpatient With expected LOS: >2 Midnights Practitioner: I am a practitioner with admitting privileges, knowledge of patient current condition, hospital course, and medical plan of care. Services: Services provided to patient in accordance with Admission requirements found in Title 42 Section 412.3 of the Code of Federal Regulations Patient History Date of Service: 05/19/25 Reason for admission: Post OP PAIN History of Present Illness: 44 yrs old Female with past medical history of menorrhagia and pelvic pain was found to have endometriosis and fibroids uterus and underwent total laparoscopic hysterectomy with bilateral salpingo-oophorectomy, endometriosis fulguration and vaginal morcellation on 05/11/[address] Parish who was brought to ER with abdominal pain and flank pains which has been going on for the last 2 to 3 days and has been progressively worsening and was brought to ER. Patient denies any fever or chills. No nausea vomiting or diarrhea. Patient was assessed in the ER and was admitted for further management. Allergies No Known Allergies Allergy (Verified 05/11/25 07:45) Home medications list reviewed: Yes Home Medications: Acyclovir 800 mg PO TIDP 05/05/25 B6/Mfolate/B12/Mineral/Tart918 [Femquil Capsule] 1 each PO DAILY 05/05/25 Bupropion *Xl* [Wellbutrin XL] 150 mg PO DAILY 05/05/25 Celecoxib 200 mg PO BID 05/05/25 Ibuprofen 800 mg PO TIDP PRN 05/05/25 Linaclotide [Linzess] 145 mcg PO DAILY 05/05/25 Magnesium [Magnesium Gluconate] 200 mg PO DAILY 05/05/25 Ondansetron [Ondansetron Odt] 4 mg PO Q8HP PRN 05/05/25 Ondansetron [Ondansetron Odt] 8 mg PO DAILY PRN 05/05/25 Phentermine HCl 0.5 tab PO DAILY 05/05/25 Prasterone (Dhea) [Dhea] 25 mg PO DAILY 05/05/25 Progesterone, Micronized [Progesterone] 200 mg PO DAILY 05/05/25 Semaglutide 1 mg SQ EVERY 7TH DAY 05/05/25 Testosterone 100 mg [place] SEECOM 05/05/25 Tramadol HCl [Ultram] 50 mg PO Q8HP PRN 08/08/25 Triamcinolone 0.1% Crm [Kenalog 0.1% Cream] 15 appl TOP BID 05/05/25 Vitamin D3/Vitamin K2 (Mk4) [K2 Plus D3 Tablet] 1 each PO DAILY 05/05/25 estradioL [Estradiol] 6 mg IL SEECOM 05/05/25 - Past Medical/Surgical History Past Medical History: Reviewed- Non-Contributory Past Surgical History: Reviewed- Non-Contributory - Family History Family History: Reviewed- Non-Contributory - Social History Smoking Status: Never smoker Review of Systems 10-point ROS is otherwise unremarkable Other: Constitutional: Reports: generalized weakness. Skin: Denies: rash. Allergy/Immun: Denies: rhinorrhea, sneezing. Eyes: Denies: visual loss/blurred. ENT: Denies: earache, nasal congestion. Respiratory: Denies: non productive cough. Cardiovascular: Denies: chest pain, palpitations. GI: Denies: diarrhea, nausea. : Denies: dysuria. Musculoskeletal: Reports: arthritis. Denies: extremity pain. Heme: Denies: bleeding. Endocrine: Denies: polydipsia. Neuro: Reports: dizziness, gait problem, lightheaded, spinning sensation. Psych: Reports: anxiety. All systems rev & neg: except as noted Physical Examination - Vital Signs Temperature: 97.8 F Blood Pressure: 132/70 Pulse: 78 Respirations: 18 Pulse Ox (%): 94 - Physical Exam General: Alert, In no apparent distress, Oriented x3 HEENT: Atraumatic, Normocephalic Neck: Supple, No Thyromegaly Respiratory: Clear to auscultation bilaterally, Normal air movement Cardiovascular: Regular rate/rhythm, Normal S1 S2 Capillary refill: <2 Seconds Gastrointestinal: Soft and benign, Tenderness Musculoskeletal: No clubbing, No swelling Integumentary: No rashes Neurological: Other (Alert awake nonfocal) Lymphatics: No axilla or inguinal lymphadenopathy - Studies Laboratory Data (last 24 hrs) 05/18/25 05/18/25 22:45 22:45 WBC 13.60 H Hgb 13.3 Hct 38.7 Plt Count 320 Sodium 138 Potassium 3.5 BUN 10 Creatinine 0.90 Glucose 95 Total Bilirubin 0.4 AST 16 ALT 28 Alkaline Phosphatase 95 Lipase 50 Assessment and Plan - Plan Postoperative pain CT findings noted Postoperative changes from recent hysterectomy. Thickening at the sigmoid colon, rectum, and along the terminal ileum is probably reactive. No extraluminal contrast to suspect leak and no free air. Small volume of loculated pelvic free fluid is probably postoperative. No evidence of a drainable abscess. Pain control IV antibiotic Will consult PSYCHIATRIC NURSE PRACTITIONER and surgery To closely in the telemetry IV hydration Leukocytosis Will obtain cultures Will monitor CBC in a.m. Started on IV antibiotic GI/DVT prophylaxis Advanced directive full code Discharge Plan: Home Plan to discharge in: 48 Hours - Advance Directives Does patient have a Living Will: No Does patient have a Durable POA for Healthcare: No - Code Status/Comfort Care Code Status: Full Code Time Spent Managing Pts Care (In Minutes): 48
[2025-05-19 04:41] VITALS: O2SAT 100
[2025-05-19] MEDS: NA CHLORIDE 0.9% 1,000 ML IV SCH (04:42)
[2025-05-19 05:10] VITALS: BMI 29.2
[2025-05-19 07:28] LABS: Absolute Lymphocytes (CBC) 1.7 K/uL (0.7-4.9); Hematocrit 38.1 % (36.0-45.0); Hemoglobin 13.3 g/dL (12.0-15.0); MCH 30.7 pg (27.0-35.0); MCHC 34.8 g/dL (32.0-36.0); MCV 88.3 fL (80-100); MPV 8.3 fL (7.6-11.3); Nucleated RBC Absolute Count 0.0 (0-0); Nucleated Red Blood Cells % 0.0 % (0-0); RBC Red Blood Cell Count 4.32 M/uL (3.86-4.86); White Blood Count 10.30 thou/uL (4.3-10.9)
[2025-05-19 07:48] LABS: ALT/SGPT 23.0 U/L (13-56); AST/SGOT 13.0 U/L (15-37); Albumin 3.2 g/dL (3.4-5.0); Albumin/Globulin Ratio 0.9 (1.1-1.8); Alkaline Phosphatase 80.0 U/L (45-117); Anion Gap 5.9 mEq/L (5.0-15.0); BUN Blood Urea Nitrogen 8.0 mg/dL (7-18); Globulin 3.7 g/dL (2.3-3.5); Glucose Level 125.0 mg/dL (74-106); Magnesium 2.2 mg/dL (1.6-2.4); Potassium 3.9 mEq/L (3.5-5.1)
[2025-05-19] MEDS: PIPER TAZO 3.375 GM in NA CHLORIDE 0.9% 100 ML IV SCH (08:34)
[2025-05-19] MEDS: ENOXAPARIN 40 MG/0.4 ML SQ SCH (08:34)
[2025-05-19] MEDS ORDERED: ENOXAPARIN 40 MG/0.4 ML SQ SCH (09:00)
[2025-05-19] MEDS: POTASSIUM CL SA 10 MEQ TAB PO ONE (12:30)
[2025-05-19] MEDS: POTASS/SODIUM PHOSPHATE 1 PKT POWD.PACK PO SCH (12:31)
[2025-05-19] MEDS: HYDROCODONE/APAP 5/325 MG TAB PO PRN (14:35)
[2025-05-19] MEDS: ONDANSETRON 4 MG/2 ML VIAL IV PRN (14:35)
[2025-05-19] MEDS: MORPHINE 2 MG/ML SYR IV PRN (19:37)
[2025-05-20] MEDS: ACETAMINOPHEN 325 MG TABLET PO PRN (05:40)
[2025-05-20 06:29] LABS: Anion Gap 7.0 mEq/L (5.0-15.0); BUN Blood Urea Nitrogen 6.0 mg/dL (7-18); Glucose Level 106.0 mg/dL (74-106); Potassium 4.0 mEq/L (3.5-5.1)
[2025-05-20 11:50] VITALS: BP 98/61; TEMP 98.4
== END 2025-05-20 12:33 | disposition home or self-care (01) | DRG 948 ==
LOC: ER 22:04 → 4TH 05-19 02:34
PROVIDERS: ADMIT Family Medicine; ATTEND Obstetrics & Gynecology
DX: G89.18 Other acute postprocedural pain (principal); M19.90 Unspecified osteoarthritis, unspecified site; D72.829 Elevated white blood cell count, unspecified; Z79.899 Other long term (current) drug therapy; Z90.710 Acquired absence of both cervix and uterus
CPT/HCPCS: 36415; 80048; 80053; 81001; 83605; 83690; 83735; 84100; 85025; 87040; 96361; 96365; 96375; 99285; J1650; J1790; J2270; J2405; J2543; J7030